=== PATIENT | male | born 1975 | race Caucasian/White ===

== ENCOUNTER 2025-03-28 07:24 | Emergency (ER) | payer OTHER ==
[~2025-03-28] VITALS: Ht 182.9 cm; Wt 118.1 kg
--- NOTE | 2025-03-28 08:14 | ED.PDOC ---
SOB-HPI HPI Comments 49 y.o male with PMHx of HTN, presents to the ED via EMS for a chief complaint of SOB and ETOH withdrawal. Patient reports he was diagnosed with PNA 3 weeks ago at [facility] and was placed on antibiotic tx which he successfully completed. Patient mentions during this course, he began drinking vodka every day x1 week. Patient reports that he was sober for the past 2-3 years and underwent detox treatment. Patient presents with a lingering hacking cough but states that shortness of breath has improved. During his stay at the hospital a couple weeks ago, patient had a fever and cold sweats and what she states have completely resolved now. Patient also mentions that stepdaughter tested positive for COVID around 03/20/2025. His last drink was 1 hour ago. Patient reports that his main concern is his withdrawals and would like to undergo whenever measures to help him start detox seen. At this time he denies any tremors, nausea, vomiting, diarrhea, abdominal pain, fever, chills. He admits to tobacco use. Time Seen by MD: 08:44 Reviewed notes: Nurses Notes, Seo Executive Notes, Medications, Allergies Information Source: Patient, Emergency Med Personnel Mode of Arrival: EMS Severity: Moderate Duration: Since onset Context: At Rest Modifying Factors: Nothing Past Medical History PAST MEDICAL HISTORY: Denies Surgical History: Denies all surgeries Family History Family History: Reviewed,noncontributory to illness Social History Smoker: Non-Smoker Alcohol: Denies ETOH Use Drugs: Denies Drug Use Lives In: Home Constitutional: reports: weakness; denies: chills, diaphoresis, fatigue, fever, malaise, sweats, others EENTM: denies: blurred vision, double vision, ear bleeding, ear discharge, ear drainage, ear pain, ear ringing, eye pain, eye redness, hearing loss, mouth pain, mouth swelling, nasal discharge, nose bleeding, nose congestion, nose pain, photophobia, tearing, throat pain, throat swelling, voice changes, others Respiratory: reports: cough, SOB at rest, shortness of breath, SOB with excertion; denies: hemoptysis, orthopnea, stridor, wheezing, others Cardiovascular: denies: chest pain, dizzy spells, diaphoresis, Dyspnea on exertion, edema, irregular heart beat, left arm pain, lightheadedness, palpitations, PND, syncope, others Gastrointestinal: denies: abdomen distended, abdominal pain, blood streaked bowels, constipated, diarrhea, dysphagia, difficulty swallowing, hematemesis, melena, nausea, poor appetite, poor fluid intake, rectal bleeding, rectal pain, vomiting, others Genitourinary: denies: burning, dysuria, flank pain, frequency, hematuria, incontinence, penile discharge, penile sore, pain, testicle pain, testicle swelling, urgency, others Neurological: denies: dizziness, fainting, headache, left sided numbness, left sided weakness, numbness, paresthesia, pre-existing deficit, right sided numbness, right sided weakness, seizure, speech problems, tingling, tremors, weakness, others Musculoskeletal: denies: back pain, gout, joint pain, joint swelling, muscle pain, muscle stiffness, neck pain, others Integumetry: denies: bruises, change in color, change in hair/nails, dryness, laceration, lesions, lumps, rash, wounds, others Allergic/Immunocompromised: denies: Difficulty Healing, Frequent Infections, Hives, Itching, others Hematologic/Lymphatic: denies: anemia, blood clots, easy bleeding, easy bruising, swollen glands, others Endocrine: denies: excessive hunger, excessive sweating, excessive thirst, excessive urination, flushing, intolerance to cold, intolerance to heat, unexplained weight gain, unexplained weight loss, others Psychiatric: denies: anxiety, bipolar disorder, depression, hopeless, panic disorder, schizophrenia, sleepless, suicidal, others All Other Systems: Reviewed and Negative Physical Exam General Appearance: Mild Distress, Other (Hacking cough during examination) HEENT: Normal ENT Inspection, Pharynx Normal, TMs Normal Neck: Full Range of Motion, Non-Tender, Normal, Normal Inspection Respiratory: Chest Non-Tender, Lungs Clear, No Accessory Muscle Use, No Respiratory Distress, Normal Breath Sounds Cardiovascular: No Edema, No JVD, No Murmur, No Gallop, Normal Peripheral Pulses, Regular Rate/Rhythm Breast Exam: Deferred Gastrointestinal: No Organomegaly, Non Tender, No Pulsatile Mass, Normal Bowel Sounds, Soft Genitalia: Deferred Pelvic: Deferred Rectal: Deferred Extremities: No calf tenderness, Normal capillary refill, Normal inspection, Normal range of motion, Non-tender, No pedal edema Musculoskeletal : Apperance: Normal Neurologic: Alert, cattyman II-XII nml as Tested, No Motor Deficits, Normal Affect, Normal Mood, No Sensory Deficits Cerebellar Function: Normal Reflexes: Normal Skin: Dry, Normal Color, Warm Lymphatic: No Adenopathy Was a procedure done? Was a procedure done?: No Differential Dx Differential Diagnosis: Asthma, Bronchitis, COPD, Pneumonia, Respiratory Distress, URI X-Ray, Labs, Meds, VS Vital Signs Date Time Temp Pulse Resp B/P (MAP) Pulse Ox O2 Delivery O2 Flow Rate FiO2 03/28/25 07:42 98.3 115 16 180/100 98 98.3 Lab Test 03/28/25 08:40 Range/Units White Blood Count 6.9 4.4-10.8 10^3/uL Red Blood Count 5.72 4.5-5.90 10^6/uL Hemoglobin 17.7 H 13.5-17.5 g/dL Hematocrit 52.2 41.0-53.0 % Mean Corpuscular Volume 91.3 80.0-100.0 fL Mean Corpuscular Hemoglobin 31.0 28.0-32.0 pg Mean Corpuscular Hemoglobin Concent 33.9 32.0-36.0 g/dL Red Cell Distribution Width 13.6 11.8-14.3 % Platelet Count 193 140-450 10^3/uL Mean Platelet Volume 6.7 L 6.9-10.8 fL Neutrophils (%) (Auto) 67.2 37.0-80.0 % Lymphocytes (%) (Auto) 24.6 10.0-50.0 % Monocytes (%) (Auto) 7.3 0.0-12.0 % Eosinophils (%) (Auto) 0.5 0.0-7.0 % Basophils (%) (Auto) 0.4 0.0-2.0 % Neutrophils # (Auto) 4.6 1.6-8.6 10 ^3/uL Lymphocytes # (Auto) 1.7 0.4-5.4 10 ^3/uL Monocytes # (Auto) 0.5 0-1.3 10 ^3/uL Eosinophils # (Auto) 0 0-0.8 10 ^3/uL Basophils # (Auto) 0 0-0.2 10 ^3/uL Nucleated Red Blood Cells 0.3 % Sodium Level 143 136-145 mmol/L Potassium Level 3.9 3.5-5.1 mmol/L Chloride Level 104 98-107 mmol/L Carbon Dioxide Level 23 20-31 mmol/L Anion Gap 16 H 5-15 Blood Urea Nitrogen 10 9-23 mg/dL Creatinine 1.05 0.700-1.30 mg/dL Glomerular Filtration Rate Calc 86 >90 mL/min BUN/Creatinine Ratio 9.5 L 10.0-20.0 Serum Glucose 141 H 74-106 mg/dL Calcium Level 9.0 8.7-10.4 mg/dL Troponin I High Sensitivity 14 </=54 ng/L B-Type Natriuretic Peptide 13.68 0-100 pg/mL 49-year-old male presents here with shortness of breath and also feeling that he is withdrawing from alcohol. Patient states few weeks ago he was diagnosed with pneumonia was given an antibiotic which he does not know the name of and while he was being treated for pneumonia he started drinking 5th of vodka every day to ease the pain. He states his last drink was 1 hour ago but already starting to feel that he is shaking any wants to stop drinking. Patient has a requesting some medication to be discharged home with to help with detoxification from alcohol. Additionally patient states that he has been short of breath. He states when he was initially diagnosed he had some fevers and chills which has subsided after the 1st course of antibiotics. He states however he continues to have a hacking cough. Patient is a smoker. At this time I have ordered a CBC BMP BNP, Ativan IV and chest x-ray. X-Ray, Labs, Meds, VS Comment [place] [address] Ph: [phone] DIAGNOSTIC IMAGING Diagnostic Imaging Report : [id number] Signed PATIENT: JUANJOSE ANDREW ACCT: [id number] UNIT: [id number] : 1975 LOC: ER ROOM / BED: / AGE / SEX: 49 / M ADM STATUS: REG ER SERVICE [id number] ORDERING PHYSICIAN: SAM TAMAYO MD PROCEDURE(s): CXR2 - CHEST TWO VIEWS ROUTINE REASON: Rule out pneumonia ORDER NUMBER(s): [id number], ACCESSION NUMBER(s): [id number] EXAM DESCRIPTION: Chest 2 View CLINICAL HISTORY: Rule out pneumonia COMPARISON: None FINDINGS and IMPRESSION: Lines, tubes, and support devices: None. Lungs / Pleura: No consolidation. No pleural effusion. No pneumothorax. Mediastinum: Normal cardiomediastinal silhouette. Osseous structures / Soft tissues: No acute findings. ATED BY: CUAUHTEMOC ESPOSITO MD DICTATED DATE/TIME: 03/28/25921 SIGNED BY: CUAUHTEMOC ESPOSITO MD SIGNED DATE/TIME: 03/28/25921 CC: Time of 1ST Reevaluation: 08:30 Reevaluation 1ST: Unchanged Patient Education/Counseling: Diagnosis, Treatment, Prognosis Family Education/Counseling: No Family Present SEPSIS Sepsis Screen Physician Orders Chest Two Views Routine (03/28/25 08:16) Electrocardigram (03/28/25 08:16) Lorazepam 2mg/Ml Inj (Ativan Inj) (03/28/25 08:30) Troponin-I Hs (03/28/25 09:16) Electrocardigram (03/28/25 09:16) Vital Signs Date Time Temp Pulse Resp B/P (MAP) Pulse Ox O2 Delivery O2 Flow Rate FiO2 03/28/25 07:42 98.3 115 16 180/100 98 98.3 Laboratory Tests Test 03/28/25 08:40 White Blood Count 6.9 10^3/uL (4.4-10.8) Departure 1 Departure Time of Disposition: 09:50 Impression: Primary Impression: Alcohol withdrawal Qualified Codes: F10.930 - Alcohol use, unspecified with withdrawal, uncomplicated Additional Impression: Bronchitis Disposition: 01 HOME / SELF CARE / HOMELESS Condition: Fair Additional Instructions: Stop drinking. I have given you Librium to use to help stop drinking and help with detoxification. Do not mix Librium and alcohol at the same time. You do not have pneumonia today. I suspect you likely have bronchitis. I have given you an albuterol inhaler, a Medrol Dosepak, and Tessalon Perles to help with the cough. Please return back to the ER if symptoms worsen or persist. Please follow up with the primary care physician. e-Prescriptions Chlordiazepoxide Hcl (Librium) 25 Mg Cp 25 MG PO TID PRN for 5 Days, #15 CAP Prov: SAM TAMAYO MD 03/28/25 Albuterol Sulfate (VENTOLIN MDI) 90 Mcg Ih 90 MCG IN Q4HP PRN, #1 INH Prov: SAM TAMAYO MD 03/28/25 Prednisone (Prednisone) 20 Mg Tab 40 MG PO DAILY for 5 Days, #10 MG Prov: SAM TAMAYO MD 03/28/25 Benzonatate (Benzonatate) 100 Mg Cap 1 CAP PO TID, #30 CAP Prov: SAM TAMAYO MD 03/28/25 Discharged With: Self Critical Care Note Critical Care Time?: No Stability Stability form required: No Heart Score Heart Score: Heart Score Response (Comments) Value History N/A 0 EKG N/A 0 Age N/A 0 Risk Factors N/A 0 Troponin N/A 0 Total 0 I personally scribed for SAM TAMAYO MD ([email or web address]) on 03/28/25 at 08:14. Electronically submitted by Kezia Dahl ([facility]). I personally scribed for SAM TAMAYO MD ([email or web address]) on 03/28/25 at 08:56. Electronically submitted by Kezia Dahl ([facility]). I personally scribed for SAM TAMAYO MD ([email or web address]) on 03/28/25 at 09:01. Electronically submitted by Kezia Dahl ([facility]). I personally scribed for SAM TAMAYO MD ([email or web address]) on 03/28/25 at 09:11. Electronically submitted by Kezia Dahl ([facility]). I personally scribed for SAM TAMAYO MD ([email or web address]) on 03/28/25 at 09:50. Electronically submitted by Kezia Dahl ([facility]). SAM TAMAYO MD Mar 28, 2025 08:14
[2025-03-28 09:16] LABS: Hematocrit 52.2 % (41.0-53.0); Hemoglobin 17.7 g/dL (13.5-17.5); Mean Corpuscular Hemoglobin 31.0 pg (28.0-32.0); Mean Corpuscular Volume 91.3 fL (80.0-100.0); Nucleated Red Blood Cells % 0.3 %
[2025-03-28 09:23] LABS: Chloride 104 mmol/L (98-107); Potassium 3.9 mmol/L (3.5-5.1); Sodium 143 mmol/L (136-145)
[2025-03-28 09:24] LABS: Anion Gap 16 (5-15); Calcium 9.0 mg/dL (8.7-10.4); Carbon Dioxide 23 mmol/L (20-31)
--- NOTE | 2025-03-28 09:25 | DVH ---
EXAM DESCRIPTION: Chest 2 View CLINICAL HISTORY: Rule out pneumonia COMPARISON: None FINDINGS and IMPRESSION: Lines, tubes, and support devices: None. Lungs / Pleura: No consolidation. No pleural effusion. No pneumothorax. Mediastinum: Normal cardiomediastinal silhouette. Osseous structures / Soft tissues: No acute findings.
[2025-03-28 09:29] LABS: BUN/Creatinine Ratio 9.5 (10.0-20.0); Blood Urea Nitrogen 10 mg/dL (9-23); Glucose 141 mg/dL (74-106)
[2025-03-28] MEDS ORDERED: PRED20TA2 PO (09:54)
[2025-03-28] MEDS ORDERED: ALBUAER3 IN (09:54)
[2025-03-28] MEDS ORDERED: BENZ100C97 PO (09:54)
[2025-03-28] MEDS ORDERED: CHL25C PO (09:56)
[2025-03-28] MEDS: LORazepam 2MG/ML-1ML VIAL IV PRN (11:02)
[2025-03-28 12:38] VITALS: BP 146/106; PULSE 109; RESP 18; TEMP 97.9; O2SAT 96
== END 2025-03-28 12:40 | disposition home or self-care (01) ==
LOC: ER 07:24 → EDBD 07:24 → ER 12:40
DX: F10.239 Alcohol dependence with withdrawal, unspecified (principal); J40 Bronchitis, not specified as acute or chronic; I10 Essential (primary) hypertension; Z79.899 Other long term (current) drug therapy; Y90.9 Presence of alcohol in blood, level not specified
CPT/HCPCS: 36415; 71046; 80048; 83880; 84484; 85025; 96374; 99284; J2060